=== PATIENT | female | born 1980 | race Two or more races ===

== ENCOUNTER 2019-06-19 18:08 | Inpatient (IN) | payer SELFPAY ==
[~2019-06-19] VITALS: Ht 142.2 cm; Wt 65.8 kg
[2019-06-19] MEDS ORDERED: OXYTOCIN 30 UNIT/500 ML PREMIX 500 ML IV PRN ×2 (19:00)
[2019-06-19] MEDS ORDERED: NALBUPHINE 10 MG/ML AMPUL. IV PRN (19:00)
[2019-06-19] MEDS ORDERED: IBUPROFEN 400 MG TABLET. PO PRN (19:00)
[2019-06-19] MEDS ORDERED: ZOLPIDEM 5 MG TABLET. PO PRN (19:00)
[2019-06-19] MEDS ORDERED: LIDOCAINE 1% PF 30 ML VIAL. INJ PRN (19:00)
[2019-06-19] MEDS ORDERED: 0.9 % SODIUM CHLORIDE 10 ML DISP.SYRIN. IV PRN (19:00)
[2019-06-19] MEDS ORDERED: fentaNYL PF VIAL 100 MCG/2 ML VIAL IV PRN (19:00)
[2019-06-19] MEDS ORDERED: DINOPROSTONE 10 MG SUPP.VAG VG ONE (19:30)
[2019-06-19 19:32] LABS: BILIRUBIN,URINE NEGATIVE (NEG); CLARITY,URINE CLEAR; COLOR,URINE YELLOW; NITRITE,URINE NEGATIVE (NEG); PH,URINE 6.5; PROTEIN,URINE NEGATIVE (NEG-TRACE); UROBILINOGEN,URINE 0.2 mg/dL (0.2 mg/dL)
[2019-06-19 19:59] LABS: BASO % 0 % (0-3); EOS # 0.1 x10^3/uL (0.0-0.7); EOS % 2 % (0-3); HEMATOCRIT 33.8 % (36.0-47.0); HEMOGLOBIN 11.5 g/dL (12.0-15.5); LYMPH # 1.4 x10^3/uL (1.0-4.8); LYMPH % 17 % (24-48); MEAN CORPUSCULAR HEMOGLOBIN 30 pg (25-35); MEAN CORPUSCULAR HGB CONC 34 g/dL (31-37); MEAN CORPUSCULAR VOLUME 89 fL (79-100); MONO # 0.6 x10^3/uL (0.0-1.1); MONO % 7 % (0-9); NEUT # 6.2 x10^3/uL (1.8-7.7); NEUT % 74 % (31-73); PLATELET COUNT 138 x10^3/uL (140-400); RED BLOOD COUNT 3.79 x10^6/uL (3.50-5.40); RED CELL DISTRIBUTION WIDTH 14.5 % (11.5-14.5); WHITE BLOOD COUNT 8.5 x10^3/uL (4.0-11.0)
[2019-06-19] MEDS: IV RINGERS,LACTATED 1000ML 1,000 ML IV PRN (20:47)
--- NOTE | 2019-06-19 20:58 | RAD ---
Obstetrical ultrasound greater than 14 weeks HISTORY: female with uncertain presentation. TECHNIQUE: Transabdominal transducer with grayscale, M-mode Doppler and color Doppler sonography. FINDINGS: Single living intrauterine fetus in cephalic position with estimated sonographic gestational age of 38 weeks 4 days and date of delivery June 29, 2019. Estimated weight is 3699 grams. Estimated weight is 63rd percentile. Cephalic index 80.7 percent. Head/abdominal circumference ratio is 0.93. Biparietal diameter 9.22 cm, gestational age 37 weeks 3 days, 24th percentile. Head circumference 33.54 cm, gestational age 38 weeks 3 days, 13th percentile. Abdominal circumference 36.02 cm, gestational age 40 weeks 0 days, 72nd percentile. Femur length 7.55 cm, gestational age 30 weeks 4 days, 25th percentile. cardiac activity documented with a heart rate of 140 bpm. Cervix long and closed length of 4.7 cm no shortening or funneling documented. Amniotic fluid index is normal measuring 14.8 cm. The placenta is anterior. No placenta previa documented. Images provided demonstrate limited visualization of the anatomy and of the umbilical cord due to late gestational age. The images provided are normal. IMPRESSION: Single living intrauterine fetus in cephalic position with estimated sonographic gestational age of 38 weeks 4 days as described above. Electronically signed by: Abiodun Knight MD (06/19/2019 8:56 PM) [id number]
[2019-06-19] MEDS ORDERED: diphenhydrAMINE HCL 25 MG CAPSULE PO PRN (21:15)
[2019-06-20] VITALS (10 sets, daily range): BP systolic 118–126; BP diastolic 55–82
[2019-06-20] MEDS: IV RINGERS,LACTATED 1000ML 1,000 ML IV PRN ×3 (01:29→10:33)
[2019-06-20] MEDS ORDERED: ceFAZolin SODIUM 1 GM in IV DEXTROSE 5% 50 ML IV ONE (02:30)
[2019-06-20] MEDS ORDERED: ceFAZolin SODIUM IV Push 1 GM VIAL. IVP ONE (03:00)
[2019-06-20] MEDS ORDERED: CITRIC ACID/SODIUM CITRATE 30 ML SOLUTION. PO ONE (03:00)
[2019-06-20] MEDS ORDERED: OXYTOCIN 30 UNIT/500 ML PREMIX 500 ML IV PRN ×2 (08:00→13:45)
[2019-06-20] MEDS ORDERED: DINOPROSTONE 10 MG SUPP.VAG VG ONE (08:00)
--- NOTE | 2019-06-20 12:28 | PDOC1 ---
OB - History Hx of Present Care: Good Care Ultrasounds: Normal mid trimester US Obstetrical Complications: None Medical Complications: None Past Family/Social History * Past Medical, Surgical, Family and Obstetric Histories reviewed from chart. Rubella: Immune RPR/VDRL: Negative GBS Status: Negative HBsAG: Negative OB - Chief Complaint & HPI Date of Admission: Date of Admission: Jun 19, 2019 at 18:08 Chief Complaint/History : 1 Para: 0 EGA: 40 Reason for admission: induction of labor Indication for induction: post dates Admission Nurse Assessment Rev: Yes OB - Admission Exam Physical Exam Vitals: VS - Last 72 Hours, by Label Date Time Temp Pulse Resp B/P (MAP) Pulse Ox O2 Delivery O2 Flow Rate FiO2 06/20/19 04:10 18 06/20/19 00:57 98.6 63 20 119/71 (87) Room Air 98.6 HEENT: Normal Heart: Regular Rate Lungs: Clear Abdomen: Gravid, Non tender, Soft Extremities: Edema Reflexes: Normal Cervical Dilatation: Fingertip Effacement: 25% Station: -3 Membranes: Intact Accelerations: Accelerations Present Decelerations: No decelerations Contractions on Admission: None Text A: 40 wks IUP IOL post P: Admit for IOL for cervidil. BOOGIE PORTER Jr, MD Jun 20, 2019 12:28
[2019-06-20] MEDS ORDERED: CITRIC ACID/SODIUM CITRATE 30 ML SOLUTION. ONE ×2 (12:32→13:00)
[2019-06-20] MEDS ORDERED: SUCCINYLCHOLINE 200 MG/10 ML VIAL. ONE (12:34)
[2019-06-20] MEDS ORDERED: ceFAZolin SODIUM 1 GM VIAL ONE ×2 (12:46→13:22)
[2019-06-20] MEDS ORDERED: PROPOFOL 20 ML IV ONE (12:47)
[2019-06-20] MEDS ORDERED: LIDOCAINE 2% PF 5 ML VIAL. ONE (12:47)
[2019-06-20] MEDS ORDERED: fentaNYL PF VIAL 100 MCG/2 ML VIAL ONE (12:50)
[2019-06-20] MEDS ORDERED: ePHEDrine PF IN SALINE 50 MG/10 ML SYRINGE. IV ONE (13:03)
[2019-06-20] MEDS ORDERED: miSOPROStol 200 MCG TABLET ONE (13:14)
[2019-06-20] MEDS ORDERED: OXYTOCIN 10 UNIT/ML VIAL. ONE (13:15)
[2019-06-20] MEDS ORDERED: KETOROLAC 30 MG/ML VIAL. ONE (13:21)
[2019-06-20] MEDS ORDERED: IV NORMAL SALINE 1000ML BAG 1,000 ML IV SCH (13:31)
--- NOTE | 2019-06-20 13:31 | PDOC4 ---
OB Operative Note Date: Jun 20, 2019 PRE OP DIAGNOSIS: NRFHT POST OP DIAGNOSIS: Other (SAme) OPERATION PERFORMED: [facility] Surgeon Dr. Serna Painter Rough Purchase Price Analyst: Celesse Anesthesia: Gen Blood Loss 500 ml Specimen placenta and infant OB Findings: Position (Vertex), Sex (Male), (8/9), Weight (8 Lb 2 oz), Fluid (Clear) Complications none Additional Remarks pt. stable BOOGIE SERNA Jr, MD Jun 20, 2019 13:31
[2019-06-20] MEDS ORDERED: KETOROLAC 30 MG/ML VIAL. IV PRN (13:45)
[2019-06-20] MEDS ORDERED: MAG HYDROX/ALUMINUM HYD/SIMETH 30 ML ORAL.SUSP PO PRN (13:45)
[2019-06-20] MEDS ORDERED: 0.9 % SODIUM CHLORIDE 10 ML DISP.SYRIN. IV PRN (13:45)
[2019-06-20] MEDS ORDERED: HYDROmorphone 12mg/30ml PCA 30 ML IV PRN (13:45)
[2019-06-20] MEDS ORDERED: NALOXONE 0.4 MG/ML VIAL. IV PRN (13:45)
[2019-06-20] MEDS ORDERED: ONDANSETRON PF 4 MG/2 ML VIAL. IV PRN (13:45)
[2019-06-20] MEDS ORDERED: diphenhydrAMINE ORAL ELIXIR 12.5 MG/5 ML ML PO PRN (13:45)
[2019-06-20] MEDS ORDERED: ZOLPIDEM 5 MG TABLET. PO PRN (13:45)
[2019-06-20] MEDS ORDERED: SIMETHICONE 80 MG TAB.CHEW PO PRN (13:45)
[2019-06-20] MEDS ORDERED: SEVOFLURANE 61 TO 120 MINUTES. IH ONE (13:48)
[2019-06-20] MEDS ORDERED: HYDROmorphone STANDARD PCA 12 MG/30 ML SYRINGE. IV ONE (13:57)
--- NOTE | 2019-06-20 15:21 | OP ---
DATE OF SURGERY: PREOPERATIVE DIAGNOSES: 1. A 40 weeks' intrauterine . 2. intolerance to labor. POSTOPERATIVE DIAGNOSES: 1. A 40 weeks' intrauterine . 2. intolerance to labor. PROCEDURE: Primary low transverse section. SURGEON: Boogie Serna MD ANESTHESIA: GURWINDERA. PERSONNEL REPRESENTATIVE: Zohreh. ESTIMATED BLOOD LOSS: 500 mL. COMPLICATIONS: None. FINDINGS: Viable male infant, Apgars 8 and 9, weight 8 pounds 2 ounces. Three-vessel cord placenta delivered manually. SUMMARY: A 38-year-old 1 at 40 weeks, being admitted for induction of labor. She was initially provided Cervidil. The Cervidil was ____ early due to occasional variable decelerations. The strip then became reassuring. She was then provided with Cervidil the following morning; however, she then began having late decelerations. The Cervidil was removed. The patient continued to have recurrent late decelerations, the decision was made to make emergent section. The patient was counseled on risks, benefits and expectations and voiced clear understanding to proceed. DESCRIPTION OF PROCEDURE: The patient was taken to surgery suite and placed in dorsal supine position. She was draped in a sterile fashion. After adequate anesthesia, Pfannenstiel skin incision was made with low transverse skin incision down to and through the fascia. The fascia was extended laterally using curved Metcalf scissors. The superior edge of fascia was grasped with two Lul clamps and dissected free of the abdominal rectus muscles using blunt dissection along with Bovie cautery. Same process took place inferiorly. The abdominal rectus muscles were dissected using sharp dissection with Metzenbaum scissors as well as blunt dissection. The peritoneum was grasped with 2 hemostats and entered sharply with Metzenbaum scissors. This incision was extended superiorly as well as inferiorly. The Vernon retractor was then placed. Low transverse hysterotomy incision was made with scalpel down to and through the amniotic sac. The hysterotomy incision was extended laterally and superiorly digitally. With aid of fundal pressure, the infant's head was delivered in a smooth atraumatic manner. With additional fundal pressure, the anterior shoulder was delivered followed by posterior shoulder and rest of the infant was delivered. The infant was suctioned with a bulb syringe orally and nasally, umbilical cord was clamped twice and cut and viable male infant was handed to waiting nursing staff. Umbilical cord was clamped twice and cut. Umbilical cord blood and arterial blood was also obtained. Three-vessel cord placenta was delivered manually. The uterus was then exteriorized and cleared of clot and debris with a moist lap. Hysterotomy incision was reapproximated using #1 Vicryl suture in running locked fashion, 800 mcg of Cytotec was placed just prior to closure of the hysterotomy incision. The uterus then became firm. Fallopian tubes and ovaries appeared normal bilaterally. The posterior cul-de-sac was cleared of clot and debris with moist lap. The uterus was then returned to the abdomen. The pericolic gutters were cleared of clot and debris with moist lap. The hysterotomy incision was reviewed and was hemostatic. The Vernon ring retractor was removed. The peritoneum was reapproximated using #1 Vicryl suture in running fashion. Fascia was reapproximated using Stratafix in a running fashion. Skin was reapproximated using 4-0 Vicryl suture in subcuticular manner. The patient tolerated the procedure well and was taken to recovery room in stable condition. Sponge and needle count correct x 3. BOOGIE SERNA MD DR: ELLI/radha JOB#: [id number] / [id number]
[2019-06-20] MEDS: FERROUS SULFATE 325 MG TABLET. PO SCH (17:00)
[2019-06-21] VITALS: BP 119/62
[2019-06-21 05:00] VITALS: BP 117/63
[2019-06-21 05:38] LABS: BASO % 0 % (0-3); EOS % 0 % (0-3); HEMATOCRIT 26.4 % (36.0-47.0); HEMOGLOBIN 8.9 g/dL (12.0-15.5); LYMPH # 1.3 x10^3/uL (1.0-4.8); LYMPH % 14 % (24-48); MEAN CORPUSCULAR HEMOGLOBIN 30 pg (25-35); MEAN CORPUSCULAR HGB CONC 34 g/dL (31-37); MEAN CORPUSCULAR VOLUME 89 fL (79-100); MONO # 0.7 x10^3/uL (0.0-1.1); MONO % 7 % (0-9); NEUT # 7.6 x10^3/uL (1.8-7.7); NEUT % 79 % (31-73); PLATELET COUNT 132 x10^3/uL (140-400); RED BLOOD COUNT 2.95 x10^6/uL (3.50-5.40); RED CELL DISTRIBUTION WIDTH 15.1 % (11.5-14.5); WHITE BLOOD COUNT 9.7 x10^3/uL (4.0-11.0)
[2019-06-21] MEDS: oxyCODONE/APAP 5/325 1 TAB TABLET PO PRN ×5 (07:41→23:22)
--- NOTE | 2019-06-21 09:44 | PDOC ---
Provider Note Provider Note Doing well VSS Dressing CDI FU in AM LIZZETTE BEAVER MD Jun 21, 2019 09:44
--- NOTE | 2019-06-21 10:06 | PDOC ---
OB Progress Note Date of Service 06/21/19 Time of Evaluation 1005 Notes Pt. feeling well. Pain controlled. Pt. tolerated regular diet. Lab Laboratory Tests Test 06/19/19 19:14 06/19/19 19:35 06/21/19 05:00 Urine Color Yellow Urine Clarity Clear Urine pH 6.5 Urine Specific [place] <=1.005 Urine Protein Negative mg/dL (NEG-TRACE) Urine Glucose (UA) Negative mg/dL (NEG) Urine Ketones (Stick) Negative mg/dL (NEG) Urine Blood Trace (NEG) Urine Nitrite Negative (NEG) Urine Bilirubin Negative (NEG) Urine Urobilinogen Dipstick 0.2 mg/dL (0.2 mg/dL) Urine Leukocyte Esterase Negative (NEG) White Blood Count 8.5 x10^3/uL (4.0-11.0) 9.7 x10^3/uL (4.0-11.0) Red Blood Count 3.79 x10^6/uL (3.50-5.40) 2.95 x10^6/uL (3.50-5.40) Hemoglobin 11.5 g/dL (12.0-15.5) 8.9 g/dL (12.0-15.5) Hematocrit 33.8 % (36.0-47.0) 26.4 % (36.0-47.0) Mean Corpuscular Volume 89 fL (79-100) 89 fL (79-100) Mean Corpuscular Hemoglobin 30 pg (25-35) 30 pg (25-35) Mean Corpuscular Hemoglobin Concent 34 g/dL (31-37) 34 g/dL (31-37) Red Cell Distribution Width 14.5 % (11.5-14.5) 15.1 % (11.5-14.5) Platelet Count 138 x10^3/uL (140-400) 132 x10^3/uL (140-400) Neutrophils (%) (Auto) 74 % (31-73) 79 % (31-73) Lymphocytes (%) (Auto) 17 % (24-48) 14 % (24-48) Monocytes (%) (Auto) 7 % (0-9) 7 % (0-9) Eosinophils (%) (Auto) 2 % (0-3) 0 % (0-3) Basophils (%) (Auto) 0 % (0-3) 0 % (0-3) Neutrophils # (Auto) 6.2 x10^3/uL (1.8-7.7) 7.6 x10^3/uL (1.8-7.7) Lymphocytes # (Auto) 1.4 x10^3/uL (1.0-4.8) 1.3 x10^3/uL (1.0-4.8) Monocytes # (Auto) 0.6 x10^3/uL (0.0-1.1) 0.7 x10^3/uL (0.0-1.1) Eosinophils # (Auto) 0.1 x10^3/uL (0.0-0.7) 0.0 x10^3/uL (0.0-0.7) Basophils # (Auto) 0.0 x10^3/uL (0.0-0.2) 0.0 x10^3/uL (0.0-0.2) Treponema pallidum Antibody Nonreactive (Nonreactive) Laboratory Tests Test 06/21/19 05:00 White Blood Count 9.7 x10^3/uL (4.0-11.0) Red Blood Count 2.95 x10^6/uL (3.50-5.40) Hemoglobin 8.9 g/dL (12.0-15.5) Hematocrit 26.4 % (36.0-47.0) Mean Corpuscular Volume 89 fL (79-100) Mean Corpuscular Hemoglobin 30 pg (25-35) Mean Corpuscular Hemoglobin Concent 34 g/dL (31-37) Red Cell Distribution Width 15.1 % (11.5-14.5) Platelet Count 132 x10^3/uL (140-400) Neutrophils (%) (Auto) 79 % (31-73) Lymphocytes (%) (Auto) 14 % (24-48) Monocytes (%) (Auto) 7 % (0-9) Eosinophils (%) (Auto) 0 % (0-3) Basophils (%) (Auto) 0 % (0-3) Neutrophils # (Auto) 7.6 x10^3/uL (1.8-7.7) Lymphocytes # (Auto) 1.3 x10^3/uL (1.0-4.8) Monocytes # (Auto) 0.7 x10^3/uL (0.0-1.1) Eosinophils # (Auto) 0.0 x10^3/uL (0.0-0.7) Basophils # (Auto) 0.0 x10^3/uL (0.0-0.2) Medications Current Medications Sodium Chloride (Normal Saline Flush) 3 ml QSHIFT PRN IV AFTER MEDS AND BLOOD DRAWS; Start 06/19/19 at 19:00; Stop 06/20/19 at 17:12; Status DC Ringer's Solution 1,000 ml @ 125 mls/hr Q8H PRN IV PER PROTOCOL Last administered on 06/20/19at 10:33; Start 06/19/19 at 19:00; Stop 06/20/19 at 17:16; Status DC Nalbuphine HCl (Nubain) 10 mg PRN Q2HR PRN IV Severe labor pain Last administered on 06/20/19at 04:10; Start 06/19/19 at 19:00; Stop 06/20/19 at 17:16; Status DC Fentanyl Citrate (Fentanyl 2ml Vial) 100 mcg PRN Q1HR PRN IV Labor pain; Start 06/19/19 at 19:00; Stop 06/20/19 at 17:16; Status DC Lidocaine HCl (Xylocaine 1% Pf 30ml Vial) 30 ml 1X PRN PRN INJ SEE COMMENTS; Start 06/19/19 at 19:00; Stop 06/20/19 at 17:16; Status DC Oxytocin/Sodium Chloride 500 ml @ 0 mls/hr CONT PRN IV SEE I/O RECORD Last administered on 06/20/19at 07:38; Start 06/20/19 at 08:00; Stop 06/20/19 at 17:12; Status DC Oxytocin/Sodium Chloride 500 ml @ 0 mls/hr CONT PRN IV SEE I/O RECORD; Start 06/19/19 at 19:00; Stop 06/20/19 at 17:12; Status DC Oxytocin/Sodium Chloride 500 ml @ 0 mls/hr CONT PRN PRN IV Post delivery bleeding; Start 06/19/19 at 19:00; Stop 06/20/19 at 17:12; Status DC Ibuprofen (Motrin) 800 mg PRN Q6HRS PRN PO PAIN; Start 06/19/19 at 19:00; Stop 06/20/19 at 17:16; Status DC Dinoprostone (Cervidil) 10 mg 1X ONCE VG Last administered on 06/19/19at 20:47; Start 06/19/19 at 19:30; Stop 06/20/19 at 17:12; Status DC Zolpidem Tartrate (Ambien) 5 mg PRN QHS PRN PO INSOMNIA; Start 06/19/19 at 19:00; Stop 06/20/19 at 17:16; Status DC Diphenhydramine HCl (Benadryl) 25 mg PRN QHS PRN PO INSOMNIA; Start 06/19/19 at 21:15 Cefazolin Sodium 1 gm/Dextrose 50 ml @ 100 mls/hr 1X ONCE IV ; Start 06/20/19 at 02:30; Stop 06/20/19 at 02:59; Status UNV Citric Acid/ Sodium Citrate (Bicitra) 30 ml 1X ONCE PO ; Start 06/20/19 at 03:00; Stop 06/20/19 at 17:12; Status DC Cefazolin Sodium (Ancef) 1 gm 1X ONCE IVP ; Start 06/20/19 at 03:00; Stop 06/20/19 at 17:12; Status DC Dinoprostone (Cervidil) 10 mg 1X ONCE VG Last administered on 06/20/19at 08:33; Start 06/20/19 at 08:00; Stop 06/20/19 at 17:12; Status DC Citric Acid/ Sodium Citrate (Bicitra) 30 ml STK-MED ONCE .ROUTE ; Start 06/20/19 at 12:32; Stop 06/20/19 at 12:32; Status DC Succinylcholine Chloride (Anectine) 200 mg STK-MED ONCE .ROUTE ; Start 06/20/19 at 12:34; Stop 06/20/19 at 12:34; Status DC Cefazolin Sodium (Ancef) 1 gm STK-MED ONCE .ROUTE ; Start 06/20/19 at 12:46; Stop 06/20/19 at 12:47; Status DC Propofol 20 ml @ As Directed STK-MED ONCE IV ; Start 06/20/19 at 12:47; Stop 06/20/19 at 12:47; Status DC Lidocaine HCl (Lidocaine Pf 2% Vial) 5 ml STK-MED ONCE .ROUTE ; Start 06/20/19 at 12:47; Stop 06/20/19 at 12:47; Status DC Fentanyl Citrate (Fentanyl 2ml Vial) 100 mcg STK-MED ONCE .ROUTE ; Start 06/20/19 at 12:50; Stop 06/20/19 at 12:51; Status DC Ephedrine Sulfate (ePHEDrine PF IN SALINE SYRINGE) 50 mg STK-MED ONCE IV ; Start 06/20/19 at 13:03; Stop 06/20/19 at 13:04; Status DC Misoprostol (Cytotec 200mcg Tab) 200 mcg STK-MED ONCE .ROUTE ; Start 06/20/19 at 13:14; Stop 06/20/19 at 13:15; Status DC Oxytocin (Pitocin) 10 unit STK-MED ONCE .ROUTE ; Start 06/20/19 at 13:15; Stop 06/20/19 at 13:15; Status DC Ketorolac Tromethamine (Toradol 30mg Vial) 30 mg STK-MED ONCE .ROUTE ; Start 06/20/19 at 13:21; Stop 06/20/19 at 13:22; Status DC Cefazolin Sodium (Ancef) 1 gm STK-MED ONCE .ROUTE ; Start 06/20/19 at 13:22; Stop 06/20/19 at 13:22; Status DC Sodium Chloride (Normal Saline Flush) 3 ml QSHIFT PRN IV AFTER MEDS AND BLOOD DRAWS; Start 06/20/19 at 13:45 Oxytocin/Sodium Chloride 500 ml @ 125 mls/hr CONT PRN IV EXCESSIVE POST- BLEEDING; Start 06/20/19 at 13:45; Stop 06/20/19 at 21:44; Status DC Ibuprofen (Motrin) 800 mg PRN Q4HRS PRN PO INFLAMMATION; Start 06/20/19 at 13:45 Ondansetron HCl (Zofran) 4 mg PRN Q6HRS PRN IV NAUSEA/VOMITING; Start 06/20/19 at 13:45 Docusate Sodium (Colace) 100 mg PRN BID PRN PO CONSTIPATION; Start 06/20/19 at 13:45 Al Hydroxide/Mg Hydroxide (Mylanta Plus Xs) 30 ml PRN Q4HRS PRN PO HEARTBURN / GAS; Start 06/20/19 at 13:45 Simethicone (Gas-X) 80 mg PRN AFTMEALHC PRN PO GAS / BLOATING; Start 06/20/19 at 13:45 Diphenhydramine HCl (Benadryl Oral Elixir) 12.5 mg PRN Q6HRS PRN PO ITCHING; Start 06/20/19 at 13:45 Ferrous Sulfate (Feosol) 325 mg BIDWMEALS PO ; Start 06/20/19 at 17:00 Zolpidem Tartrate (Ambien) 5 mg PRN QHS PRN PO INSOMNIA, MAY REPEAT X1; Start 06/20/19 at 13:45 Oxycodone/ Acetaminophen (Percocet 5/325) 2 tab PRN Q4HRS PRN PO MODERATE PAIN, SEVERE PAIN Last administered on 06/21/19at 07:41; Start 06/20/19 at 13:45 Ketorolac Tromethamine (Toradol 30mg Vial) 30 mg PRN Q6HRS PRN IV MODERATE PAIN Last administered on 06/21/19at 07:31; Start 06/20/19 at 13:45; Stop 06/25/19 at 13:44 Naloxone HCl (Narcan) 0.4 mg PRN Q2MIN PRN IV SEE INSTRUCTIONS; Start 06/20/19 at 13:45 Sodium Chloride 1,000 ml @ 25 mls/hr Q24H IV ; Start 06/20/19 at 13:31; Stop 06/20/19 at 17:12; Status DC Hydromorphone HCl 30 ml @ 0 mls/hr CONT PRN PRN IV PER PROTOCOL Last administered on 06/20/19at 14:19; Start 06/20/19 at 13:45; Stop 06/20/19 at 17:17; Status DC Sevoflurane (Ultane) 60 ml STK-MED ONCE IH ; Start 06/20/19 at 13:48; Stop 06/20/19 at 13:48; Status DC Citric Acid/ Sodium Citrate (Bicitra) 30 ml STK-MED ONCE .ROUTE ; Start 06/20/19 at 13:00; Stop 06/21/19 at 08:20; Status DC Exam ABd: soft, mild tenderness, fundus firm Bandage in place and dry. Assessment POD#1 s/p c/s Plan of Care: Continue current Tx, Mgmt BOOGIE PORTER Jr, MD Jun 21, 2019 10:06
[2019-06-21 10:30] VITALS: BP 121/64
[2019-06-21] MEDS: IBUPROFEN 400 MG TABLET. PO PRN ×2 (14:28→23:21)
[2019-06-21] MEDS: FERROUS SULFATE 325 MG TABLET. PO SCH (17:16)
[2019-06-21] MEDS: DOCUSATE SODIUM 100 MG CAPSULE. PO PRN (17:16)
[2019-06-21 22:11] VITALS: BP 110/66
[2019-06-22 07:30] VITALS: BP 103/64
[2019-06-22] MEDS: FERROUS SULFATE 325 MG TABLET. PO SCH ×2 (08:22→17:34)
[2019-06-22] MEDS: DOCUSATE SODIUM 100 MG CAPSULE. PO PRN ×2 (08:22→17:35)
[2019-06-22] MEDS: IBUPROFEN 400 MG TABLET. PO PRN ×2 (08:23→17:35)
[2019-06-22] MEDS ORDERED: FLU VAX QS 2019-20 (36MOS+)/PF 0.5 ML SYRINGE. VAX IM ONE (11:45)
[2019-06-22] MEDS ORDERED: DIPHTH,PERTUSS(ACELL),TET TOX 0.5 ML DISP.SYRIN. VAX IM ONE (11:45)
--- NOTE | 2019-06-22 13:55 | PDOC ---
Provider Note Provider Note Doing welll VSS Dressing CDI FU in AM LIZZETTE BEAVER MD Jun 22, 2019 13:55
[2019-06-22 19:10] VITALS: BP 116/64
[2019-06-22 23:18] VITALS: BP 109/60
[2019-06-23 06:13] VITALS: BP 102/60
[2019-06-23] MEDS: oxyCODONE/APAP 5/325 1 TAB TABLET PO PRN ×2 (06:16→13:41)
[2019-06-23] MEDS: FERROUS SULFATE 325 MG TABLET. PO SCH (08:00)
[2019-06-23] MEDS: DOCUSATE SODIUM 100 MG CAPSULE. PO PRN (13:40)
[2019-06-23] MEDS: IBUPROFEN 400 MG TABLET. PO PRN (13:40)
--- NOTE | 2019-06-23 14:00 | NUR ---
home instructions gone over with pt and states has no questions. to see dr dickson 1 week. car seat used no recalls
[2019-06-23 14:10] VITALS: BP 128/72
--- NOTE | 2019-06-23 15:15 | PDOC3 ---
OB DISCHARGE SUMMARY DATE OF ADMISSION: 06/19/19 DATE OF DISCHARGE: 06/23/19 REASON FOR ADMISSION: Induction of labor PROCEDURES: Ultrasound INTRAPARTUM PROCEDURES: : Low Cerv Trans OPERATIONS: None DISCHARGE DIAGNOSIS: Term Delivered DISCHARGE INFORMATION: Activity, Diet HOSPITAL COURSE Unremarkable CONDITION AT DISCHARGE Stable LIZZETTE BEAVER MD Jun 23, 2019 15:15
== END 2019-06-23 16:38 | disposition home or self-care (01) | DRG 788 ==
LOC: 3 SO LND 18:08 → 3 NORTH 06-20 16:11
PROVIDERS: ADMIT Specialist; ATTEND Specialist
PROC: 10D00Z1 Extraction of Products of Conception, Low, Open Approach (ICD-10-PCS; principal; 2019-06-20)
DX: O76 Abnormality in fetal heart rate and rhythm complicating labor and delivery (principal); Z37.0 Single live birth; Z3A.40 40 weeks gestation of pregnancy
CPT/HCPCS: 36415; 76815; 81003; 85025; 86592; 86850; 86900; 86901; 88307; 90471; 90686; 90715; J0171; J0330; J0690; J1170; J1885; J2001; J2300; J2590; J2704; J3010; J7120; G0378